=== PATIENT | female | born 1980 | race Caucasian/White ===

== ENCOUNTER 2017-03-29 18:05 | Emergency (ER) | payer OTHER ==
[~2017-03-29] VITALS: Ht 165.1 cm; Wt 65.8 kg
[2017-03-29 18:16] VITALS: BP 132/90
--- NOTE | 2017-03-29 18:19 | NUR ---
PT SENT TO LOBBY TO WAIT FOR BED OR CHAIR.
--- NOTE | 2017-03-29 19:49 | NUR ---
To OF1.
--- NOTE | 2017-03-29 20:00 | NUR ---
PATIENT PRESENTS TO ED WITH RT LUMP ON BREAST . PT STATES SHE NOTICIED LUMP ON BREAST ON 03/26/17 . DENIES N/V/D; SKIN IS PINK/WARM/DRY; AAOX4 WITH EVEN AND STEADY GAIT; LUNGS CLEAR BL; HR EVEN AND REGULAR; PT DENIES ANY FEVER, CP, SOB, OR COUGH AT THIS TIME; PATIENT STATES PAIN OF 4/10 AT THIS TIME; VSS; PATIENT POSITIONED FOR COMFORT; HOB ELEVATED; BEDRAILS UP X2; BED DOWN. ER MD MADE AWARE OF PT STATUS.
[2017-03-29 20:50] VITALS: BP 132/90
--- NOTE | 2017-03-29 20:51 | NUR ---
Patient discharged with v/s stable. Written and verbal after care instructions given and explained. Patient verbalized understanding. Ambulatory with steady gait. All questions addressed prior to discharge. Advised to follow up with PMD.
== END 2017-03-29 20:50 | disposition home or self-care (01) ==
LOC: MED 18:05
DX: N60.01 Solitary cyst of right breast (principal); Z71.6 Tobacco abuse counseling
CPT/HCPCS: 99281